=== PATIENT | male | born 1965 | race Caucasian/White ===

== ENCOUNTER 2017-03-14 07:00 | Inpatient (IN) | payer MEDICAID ==
[~2017-03-14 07:00] MED LIST: AMBIEN10 M1 PO; CARAFATE1 G2 PO; CYMBALTA60 M1 PO; HYDROCODON-ACE1 EA17 PO; LAMICTAL25 M2 PO; LIPITOR40 M1 PO; LOPRESSOR50 M1 PO; NEURONTIN600 M1 PO; NORVASC5 M2 PO; PROTONIX40 M2 PO; RESTORIL15 M1 PO; SEROQUEL XR400 M2 PO; VISTARIL50 M1 PO
--- NOTE | 2017-03-14 21:38 | NUR ---
VITRUAL CARE NOTE: PT. IN THE CHAIR, STATES IS HAVING LOTS OF PAIN, AND HAS ONLY WALKED X1 FROM SURGERY. PT. IS AWAITING TO GO ON A WALK. DESCRIBES HIS HEALTH HX WITH THIS RN. AIDE THEN WALKS IN FOR WALK. THIS RN WILL PAGE FLOOR RN FOR PAIN MEDS. INSTRUCTED TO CALL FOR FURTHER NEEDS. STATES VERBAL AGREEMENT.
[2017-03-15] MEDS ORDERED: PERCOCET 7.5-31 EAC1 PO (10:23)
[2017-03-15] MEDS ORDERED: COLACE100 M1 PO (10:24)
== END 2017-03-15 18:24 | DRG 328 ==
LOC: SHSC 07:00 → ORW 09:00 → PACU 11:48 → 5WD 13:40
PROVIDERS: ADMIT Surgery
PROC: 0BQS4ZZ (ICD-10-PCS; principal; 2017-03-14)
PROC: 0DV44ZZ Restriction of Esophagogastric Junction, Percutaneous Endoscopic Approach (ICD-10-PCS; 2017-03-14)
PROC: 0WBC4ZZ Excision of Mediastinum, Percutaneous Endoscopic Approach (ICD-10-PCS; 2017-03-14)
DX: K44.9 Diaphragmatic hernia without obstruction or gangrene (principal); E66.01 Morbid (severe) obesity due to excess calories; K21.9 Gastro-esophageal reflux disease without esophagitis; D17.1 Benign lipomatous neoplasm of skin and subcutaneous tissue of trunk; F32.9 Major depressive disorder, single episode, unspecified; F41.9 Anxiety disorder, unspecified; I10 Essential (primary) hypertension; Z87.891 Personal history of nicotine dependence; Z68.33 Body mass index [BMI] 33.0-33.9, adult
CPT/HCPCS: C1751; C9113; J0690; J1650; J1885; J2250; J2270; J2765; J3010; J7030

== ENCOUNTER 2017-03-28 00:44 | Observation (INO) | payer MEDICAID ==
[~2017-03-28 00:44] MED LIST changes: +COLACE100 M1 PO; +PERCOCET 7.5-31 EAC1 PO
[2017-03-28] MEDS ORDERED: LAMICTAL100 M2 PO (00:57)
[2017-03-28] MEDS ORDERED: LIPITOR20 M1 PO (00:57)
[2017-03-28] MEDS ORDERED: PERCOCET 7.5-31 EAC1 PO (00:58)
[2017-03-28] MEDS ORDERED: NEURONTIN600 M1 PO (00:59)
[2017-03-28 05:06] LABS: BASO % 0.4 % (0-2); EOS % 1.5 % (0-7); EOSINOPHIL ABSOLUTE COUNT 0.1 tho/cmm (0.0-0.7); HCT-HEMATOCRIT 44.3 % (36.0-53.5); HGB-HEMOGLOBIN 14.9 gm/dl (13.5-17.0); IMMATURE GRANULOCYTES ABSOLUTE 0.04 tho/cmm (0-0.03); IMMATURE GRANULOCYTES PERCENT 0.4 % (0-0.3); LYMPH % 15.5 % (20-45); LYMPH ABSOLUTE COUNT 1.5 tho/cmm (0.8-4.5); MCH (MEAN CORPUSCULAR HGB) 27.3 pg (28.0-32.0); MCHC MEAN CORPUSCULAR HGB CONC 33.6 % (32.0-36.0); MCV (MEAN CELL VOLUME) 81.1 fl (82.0-96.0); MEAN PLATELET VOLUME 8.9 cmc (9.4-12.4); MONO % 9.2 % (0-12); MONOCYTE ABSOLUTE COUNT 0.9 tho/cmm (0.0-1.2); NEUTROPHIL ABSOLUTE COUNT 6.9 tho/cmm (1.6-8.0); NEUTROPHIL-AUTOMATED 6.9 tho/cmm (1.6-8.0); PLATELET COUNT 351 tho/cmm (150-450); RED BLOOD COUNT 5.46 mil/cmm (4.40-5.70); RED CELL DISTRIBUTION WIDTH 16.6 % (12.4-16.4); WHITE BLOOD COUNT 9.4 tho/cmm (4.0-10.0)
[2017-03-28 05:14] LABS: ANION GAP 12 mmol/L (0-20); BLOOD UREA NITROGEN 18 mg/dl (6-24); CARBON DIOXIDE-VENOUS 26 mmol/L (22-32); CHLORIDE 104 mmol/l (96-110); CREATININE 1.66 mg/dl (0.60-1.30); GLUCOSE 124 mg/dL (70-110); POTASSIUM 3.9 mmol/L (3.7-5.1); SODIUM 138 mmol/L (135-145); eGFR VALUE FOR BLACK 54 mL/Min
[2017-03-28 06:29] LABS: AMYLASE 66 U/L (20-90); LIPASE 148 U/L (73-393)
[2017-03-28] MEDS ORDERED: NEURONTIN300 M1 PO (14:37)
[2017-03-28] MEDS ORDERED: SEROQUEL X200 MG/TAB PO (14:40)
[2017-03-28] MEDS ORDERED: RESTORIL15 M1 PO (14:46)
[2017-03-28] MEDS ORDERED: FLONASE ALLERG9.9 ML (14:47)
[2017-03-28] MEDS ORDERED: LASIX20 M1 PO (14:47)
[2017-03-28 18:15] LABS: URINE APPEARANCE HAZY; URINE BILIRUBIN SMALL (NEG); URINE BLOOD SMALL (NEG); URINE COLOR DARK YELLOW; URINE GLUCOSE (UA) NEGATIVE (NEG); URINE KETONE SMALL (NEG); URINE LEUKOCYTE ESTERASE POSITIVE (NEG); URINE NITRITE NEGATIVE (NEG); URINE PROTEIN MODERATE (NEG)
[2017-03-28 18:25] LABS: URINE EPITHELIAL CELLS 0-1 /[HPF] (0-10); URINE MUCUS 2+; URINE RBC 0-2 /[HPF] (0-5)
[2017-03-29 05:01] LABS: BASO % 0.7 % (0-2); BASO ABSOLUTE COUNT 0.1 tho/cmm (0.0-0.2); EOS % 2.3 % (0-7); EOSINOPHIL ABSOLUTE COUNT 0.2 tho/cmm (0.0-0.7); HCT-HEMATOCRIT 39.5 % (36.0-53.5); HGB-HEMOGLOBIN 13.1 gm/dl (13.5-17.0); IMMATURE GRANULOCYTES ABSOLUTE 0.01 tho/cmm (0-0.03); IMMATURE GRANULOCYTES PERCENT 0.1 % (0-0.3); LYMPH % 30.1 % (20-45); LYMPH ABSOLUTE COUNT 2.1 tho/cmm (0.8-4.5); MCH (MEAN CORPUSCULAR HGB) 27.2 pg (28.0-32.0); MCHC MEAN CORPUSCULAR HGB CONC 33.2 % (32.0-36.0); MCV (MEAN CELL VOLUME) 82.1 fl (82.0-96.0); MEAN PLATELET VOLUME 9.2 cmc (9.4-12.4); MONO % 9.3 % (0-12); MONOCYTE ABSOLUTE COUNT 0.6 tho/cmm (0.0-1.2); NEUTROPHILS % 57.5 % (40-80); PLATELET COUNT 277 tho/cmm (150-450); RED BLOOD COUNT 4.81 mil/cmm (4.40-5.70); RED CELL DISTRIBUTION WIDTH 16.8 % (12.4-16.4); WHITE BLOOD COUNT 6.9 tho/cmm (4.0-10.0)
[2017-03-29 05:04] LABS: ANION GAP 11 mmol/L (0-20); BLOOD UREA NITROGEN 17 mg/dl (6-24); CALCIUM 8.5 mg/dl (8.5-10.5); CARBON DIOXIDE-VENOUS 23 mmol/L (22-32); CHLORIDE 109 mmol/l (96-110); GLUCOSE 87 mg/dL (70-110); SODIUM 139 mmol/L (135-145); eGFR VALUE FOR BLACK 72 mL/Min
[2017-03-29 05:15] LABS: POTASSIUM 3.9 mmol/L (3.7-5.1)
--- NOTE | 2017-03-29 17:40 | NUR ---
1703-[facility] NURSE ROUNDING-PATIENT STATES HE IS HAVING SOME ABDOMINAL PAIN. NURSE PAGED. HAS NO OTHER CONCERNS AT THIS TIME. CALL LIGHT WITHIN REACH. Schuyler GUERRA RN
[2017-03-30] MEDS ORDERED: TYLENOL325 M2 PO (08:18)
== END 2017-03-30 11:05 ==
LOC: 5WD 00:44
PROVIDERS: Internal Medicine; ADMIT Internal Medicine
DX: R10.9 Unspecified abdominal pain (principal); I10 Essential (primary) hypertension; M19.90 Unspecified osteoarthritis, unspecified site; F41.9 Anxiety disorder, unspecified; K21.9 Gastro-esophageal reflux disease without esophagitis; E66.9 Obesity, unspecified; F17.210 Nicotine dependence, cigarettes, uncomplicated; D72.829 Elevated white blood cell count, unspecified; Z79.899 Other long term (current) drug therapy; Z88.8 Allergy status to other drugs, medicaments and biological substances; Z98.1 Arthrodesis status; Z98.890 Other specified postprocedural states
CPT/HCPCS: G0378; J1630; J2270; J2405; J7030

== ENCOUNTER 2017-04-02 00:02 | Emergency (ER) | payer MEDICAID ==
[~2017-04-02 00:02] MED LIST changes: +FLONASE ALLERG9.9 ML; +LAMICTAL100 M2 PO; +LASIX20 M1 PO; +LIPITOR20 M1 PO; +NEURONTIN300 M1 PO; +SEROQUEL X200 MG/TAB PO; +TYLENOL325 M2 PO
[2017-04-02 01:14] LABS: BASO % 0.6 % (0-2); BASO ABSOLUTE COUNT 0.1 tho/cmm (0.0-0.2); EOS % 2.3 % (0-7); EOSINOPHIL ABSOLUTE COUNT 0.2 tho/cmm (0.0-0.7); HCT-HEMATOCRIT 42.1 % (36.0-53.5); HGB-HEMOGLOBIN 14.6 gm/dl (13.5-17.0); IMMATURE GRANULOCYTES ABSOLUTE 0.02 tho/cmm (0-0.03); IMMATURE GRANULOCYTES PERCENT 0.2 % (0-0.3); LYMPH % 28.3 % (20-45); LYMPH ABSOLUTE COUNT 2.4 tho/cmm (0.8-4.5); MCH (MEAN CORPUSCULAR HGB) 27.8 pg (28.0-32.0); MCHC MEAN CORPUSCULAR HGB CONC 34.7 % (32.0-36.0); MCV (MEAN CELL VOLUME) 80.2 fl (82.0-96.0); MEAN PLATELET VOLUME 9.2 cmc (9.4-12.4); MONOCYTE ABSOLUTE COUNT 0.8 tho/cmm (0.0-1.2); NEUTROPHIL ABSOLUTE COUNT 5.1 tho/cmm (1.6-8.0); NEUTROPHIL-AUTOMATED 5.1 tho/cmm (1.6-8.0); NEUTROPHILS % 59.6 % (40-80); PLATELET COUNT 320 tho/cmm (150-450); RED BLOOD COUNT 5.25 mil/cmm (4.40-5.70); RED CELL DISTRIBUTION WIDTH 16.3 % (12.4-16.4); WHITE BLOOD COUNT 8.6 tho/cmm (4.0-10.0)
[2017-04-02 01:28] LABS: ALB/GLOB RATIO 0.9 (0.8-2.0); ALBUMIN 3.3 g/dl (3.5-5.0); ALKALINE PHOSPHATASE 127 U/L (33-138); ALT/SGPT 24 U/L (12-78); ANION GAP 13 mmol/L (0-20); AST/SGOT 18 U/L (10-40); BILIRUBIN,TOTAL 0.5 mg/dl (0.0-1.5); BLOOD UREA NITROGEN 11 mg/dl (6-24); CALCIUM 9.1 mg/dl (8.5-10.5); CARBON DIOXIDE-VENOUS 29 mmol/L (22-32); CHLORIDE 105 mmol/l (96-110); CREATININE 1.11 mg/dl (0.60-1.30); GLUCOSE 97 mg/dL (70-110); POTASSIUM 3.7 mmol/L (3.7-5.1); SODIUM 143 mmol/L (135-145); eGFR VALUE FOR BLACK 87 mL/Min
[2017-04-02] MEDS ORDERED: BENTYL10 M1 PO (01:42)
== END 2017-04-02 01:57 ==
LOC: EDMED 00:02
PROVIDERS: Emergency Medicine
DX: E86.0 Dehydration (principal); R19.7 Diarrhea, unspecified; I10 Essential (primary) hypertension; K21.9 Gastro-esophageal reflux disease without esophagitis; Z98.890 Other specified postprocedural states; Z79.899 Other long term (current) drug therapy; F17.200 Nicotine dependence, unspecified, uncomplicated
CPT/HCPCS: J7030